=== PATIENT | male | born 1985 | race Caucasian/White ===

== ENCOUNTER 2020-03-22 19:14 | Emergency (ER) | payer SELFPAY ==
--- NOTE | ~2020-03-22 | XR_ITS ---
EXAMINATION: XR chest 2V EXAM DATE: 03/22/2020 19:39 INDICATION: Heart palpitations, chest discomfort. Symptoms developed after drinking energy drink. TECHNIQUE: Frontal and lateral projections of the chest obtained and reviewed. Comparison is made to prior examination from 09/30/2016. FINDINGS: Again there is mild hyperinflation. The lungs are clear. There are no pleural effusions. The cardiomediastinal silhouette is within normal limits. There is no pneumothorax suspected. The b ones and soft tissues are unremarkable. IMPRESSION: Hyperinflation, unchanged. Reviewed, dictated and finalized at location A. IMPRESSION: Hyperinflation, unchanged.
[2020-03-22 19:18] VITALS: BP 123/83; PULSE 65; RESP 17; TEMP 36.7; O2SAT 99
--- NOTE | 2020-03-22 19:23 | ECG_ITS ---
Measurements Intervals [place] Rate: 59 P: 56 MO: 125 QRS: 75 QRSD: 98 T: 64 QT: 371 QTc: 368 Interpretive Statements SINUS BRADYCARDIA INCOMPLETE RIGHT BUNDLE BRANCH BLOCK BORDERLINE ECG Electronically Signed On 03-23-2020 7:16:31 CDT by Travis Kearns D.O.
[2020-03-22 19:32] LABS: Basophils Absolute Auto 0.1 K/mm3 (0.0-0.1); Basophils Percent Auto 0.9 % (0.2-1.2); Eosinophils Absolute Auto 0.3 K/mm3 (0-0.3); Hematocrit 39.2 % (42.0-52.0); Hemoglobin 13.1 g/dL (14.0-18.0); Immature Granulocyte Absolute 0.02 K/mm3 (0.00-0.031); Immature Granulocyte Percent A 0.3 % (0-0.5); Lymphocytes Absolute Auto 1.74 K/mm3 (0.9-3.2); Lymphocytes Percent Auto 27.1 % (18.3-44.2); Mean Corpuscular HGB Conc 33.4 g/dl (32-36); Mean Corpuscular Hemoglobin 30.2 pg (26-34); Mean Corpuscular Volume 90.3 fl (80-100); Mean Platelet Volume 9.8 fl (7.4-10.4); Monocytes Absolute Auto 0.5 K/mm3 (0.1-0.6); Neutrophils Absolute Auto 3.8 K/mm3 (1.3-6.7); Neutrophils Percent Auto 59.7 % (45.5-73.1); Platelet Count Result 218 k/mm3 (150-375); Red Blood Count 4.34 M/mm3 (4.6-6.20); Red Cell Distribution Width 12.3 % (11.5-14.5); White Blood Count 6.4 K/mm3 (4.5-10.0)
--- NOTE | 2020-03-22 19:32 | PC.NURSE ---
Patient states he took 324mg Aspirin before coming to ED. 162mg returned to Pyx[facility], the other 162mg disposed of in waste after previously being opened.
[2020-03-22 19:42] LABS: Prothrombin Time 12.7 Seconds (11.1-14.7)
[2020-03-22 19:49] LABS: Blood Urea Nitrogen 8 mg/dL (9-20); Carbon Dioxide 28 mmol/L (22-30); Chloride 102 mmol/L (98-107); Estimated CRCL calculation 88 ml/min; Estimated Glomerular Filt Rate > 60; Glucose 101 mg/dL (75-110); Potassium 3.8 mmol/L (3.4-5.0); Sodium 137 mmol/L (137-145)
[2020-03-22 20:01] LABS: Troponin I < 0.012 ng/mL (0.000-0.034)
[2020-03-22 20:15] VITALS: BP 128/84; PULSE 58; RESP 13; O2SAT 99
--- NOTE | 2020-03-22 20:19 | ED.ARRPALP ---
HPI - Arrhythmia/Palpitations General Chief Complaint: Arrhythmia/Palpitations Stated Complaint: Irregular heartbeat Time Seen by Provider: 03/22/20 20:08 Source: patient Mode of arrival: ambulatory Limitations: no limitations History of Present Illness HPI narrative: This patient is a 34 year old male who presents for evaluation of palpitations. He states he was lifting boxes at work and he felt his heart starting to race. He states that he starting having more palpitations so he came to the ER. He reported that he had some chest tightness but that has resolved. He denies cough, fever or chills. He states he feels better. He does admit to drinking 2 energy drinks today today prior to this episode. He reports he drinks them daily. His mother states patient has loss weight because he is working and not eating. MD complaint: palpitations and irregular heart beat Related Data Home Medications Medication Instructions Recorded Confirmed No Home Medications 03/22/20 Allergies Allergy/AdvReac Type Severity Reaction Status Date / Time Sulfa (Sulfonamide Allergy Unknown Verified 03/22/20 19:22 Antibiotics) Review of Systems Review of Systems: All systems reviewed & are unremarkable except as noted in HPI and below Constitutional: Constitutional: Denies chills and Reports fatigue Cardiovascular: Cardiovascular: Reports chest pain, Reports rapid heart rate and Denies radiating jaw, neck or arm pain Respiratory: Respiratory: Denies cough, Denies dyspnea and Denies wheezing Gastrointestinal: Gastrointestinal: Denies abdominal pain [facility] Family History Family History (Updated 06/17/14 @ 07:13 by DOCTOR UNKNOWN) Father Family history of pancreatic cancer Social History Social History (Updated 03/22/20 @ 20:20 by Jyotsna Gunn MD) Smoking packs per day: 1 Smoking cigarettes per day: 20.0 Smoking status: Current every day smoker Alcohol intake: current Substance use type: marijuana Exam Narrative: Exam Narrative: GENERAL: Well-appearing, thin and in no acute distress. HEAD: Normocephalic, atraumatic EYES: PERRLA and EOMI, conjunctiva clear without discharge EARS: TM's clear bilaterally without erythema or dullness NOSE: Nares clear, no rhinorrhea or epistaxis THROAT:Mucous membranes moist, Oropharynx normal without erythema, exudate, peritonsillar swelling or fluctuance NECK: Supple, without lymphadenopathy or mass RESPIRATORY: No respiratory distress, Airway patent, Respirations non-labored, Clear to auscultation without rales, rhonchi or wheeze HEART: Regular rate and rhythm. No murmur heard. Normal peripheral pulses. ABDOMEN: Soft, nontender, nondistended, normal active bowel sounds. No masses. No rebound or guarding, No organomegaly. EXTREMITIES: No edema, normal strength with full range of motion. SKIN: Warm, dry, normal color without rash NEURO: Alert and oriented x3. CN 2-12 grossly intact. No focal deficits. PSYCH: Normal mood and affect. Course Reevaluation(s) Reevaluation #1: PAtient has no symptoms. Patient has been in sinus bradycardia which he has history of. There is no tachycardia. He will refrain from caffeine or energy drinks. Date: 03/22/20 Time: 22:59 Vital Signs Vital signs: Vital Signs Temperature 98.1 F 03/22/20 19:18 Pulse Rate 65 03/22/20 19:18 Respiratory Rate 17 03/22/20 19:18 Blood Pressure 123/83 03/22/20 19:18 Pulse Oximetry 99 03/22/20 19:18 Temperature 97.2 F L 03/22/20 23:24 Pulse Rate 55 L 03/22/20 23:24 Respiratory Rate 14 03/22/20 23:24 Blood Pressure 117/60 03/22/20 23:24 Pulse Oximetry 99 03/22/20 23:24 MDM - Arrhythmia/Palpitations Lab Data Attestation: I reviewed the patient's lab results. Result diagrams: 03/22/20 19:25 03/22/20 19:25 Labs: Lab Results 03/22/20 03/22/20 03/22/20 Range/Units 19:25 19:25 19:25 WBC 6.4 (4.5-10.0) K/mm3
[2020-03-22 20:31] LABS: Magnesium 2.2 mg/dL (1.6-2.3)
[2020-03-22 21:45] VITALS: BP 111/73; PULSE 51; RESP 10; O2SAT 100
[2020-03-22 22:53] LABS: Troponin I < 0.012 ng/mL (0.000-0.034)
[2020-03-22 23:24] VITALS: BP 117/60; PULSE 55; RESP 14; TEMP 36.2; O2SAT 99
== END 2020-03-22 23:26 | disposition home or self-care (01) ==
PROVIDERS: Emergency Provider General Practice
DX: R00.2 Palpitations (principal); E83.52 Hypercalcemia; F17.210 Nicotine dependence, cigarettes, uncomplicated; R00.1 Bradycardia, unspecified; I45.10 Unspecified right bundle-branch block
CPT/HCPCS: 36415; 71046; 80048; 83735; 84484; 85025; 85610; 85730; 93005; 99284

== ENCOUNTER 2022-03-15 16:50 | Emergency (ER) | payer OTHER, SELFPAY ==
--- NOTE | ~2022-03-15 | CT_ITS ---
EXAMINATION: CT abdomen pelvis w con DATE: 03/15/2022 18:45 INDICATION: Left upper abdomen pain. TECHNIQUE: Computed tomography (CT) of the abdomen and pelvis was performed with 75 cc Omnipaque 350 intravenous contrast. The dose-length product was 181.41 mGy-cm. Automated exposure control and itera tive reconstruction technique were employed. COMPARISON: CT dated 10/22/2014. FINDINGS: Lung bases are unremarkable. Heart size is normal. No significant pleural or pericardial ef fusion. Small subcentimeter hypodensities of the liver, most likely benign. The spleen, pancreas, adr enal glands and kidneys are unremarkable. There is moderate fluid in the stomach. No evidence for obs truction. No significant vascular abnormality. No lymphadenopathy. There is lower thoracic spondylosi s. No acute osseous abnormality. IMPRESSION: 1. No acute abdominal abnormality. Reviewed, dictated and finalized at location A.
[2022-03-15 16:56] VITALS: BP 133/79; PULSE 95; RESP 18; TEMP 36.8; O2SAT 99
[2022-03-15 17:03] LABS: Appearance Urine Clear (Clear); Bilirubin Urine Negative (Negative); Blood Urine Negative (Negative); Glucose Urine UA Negative (Negative); Ketones Urine Negative (Negative); Leukocyte Esterase Ur Negative LEU/UL (Negative); Nitrate Urine Negative (Negative); Protein Urine Negative (Negative); Urobilinogen Urine 0.2 mg/dL (<2.0); pH Urine 6.5 (5.0-9.0)
[2022-03-15 17:04] LABS: Add Urine Microscopic? NO; Color Urine Light Yellow (Yellow)
[2022-03-15 17:12] VITALS: BP 120/77; PULSE 56; RESP 18; O2SAT 100
[2022-03-15 17:24] LABS: Basophils Absolute Auto 0.1 K/mm3 (0.0-0.1); Basophils Percent Auto 1.1 % (0.2-1.2); Eosinophils Absolute Auto 0.2 K/mm3 (0-0.3); Eosinophils Percent Auto 3.3 % (0-4.4); Hematocrit 42.6 % (42.0-52.0); Hemoglobin 13.8 g/dL (14.0-18.0); Immature Granulocyte Absolute 0.02 K/mm3 (0.00-0.031); Immature Granulocyte Percent A 0.4 % (0-0.5); Lymphocytes Percent Auto 25.8 % (18.3-44.2); Mean Corpuscular HGB Conc 32.4 g/dl (32-36); Mean Corpuscular Hemoglobin 29.4 pg (26-34); Mean Corpuscular Volume 90.8 fl (80-100); Mean Platelet Volume 9.6 fl (7.4-10.4); Monocytes Absolute Auto 0.4 K/mm3 (0.1-0.6); Monocytes Percent Auto 7.6 % (2.6-8.5); Neutrophils Absolute Auto 3.4 K/mm3 (1.3-6.7); Neutrophils Percent Auto 61.8 % (45.5-73.1); Platelet Count Result 224 k/mm3 (150-375); Red Blood Count 4.69 M/mm3 (4.6-6.20); Red Cell Distribution Width 12.1 % (11.5-14.5); White Blood Count 5.4 K/mm3 (4.5-10.0)
[2022-03-15 17:35] LABS: Alanine Aminotransferase 22 U/L (6-50); Albumin Level 4.5 g/dL (3.5-5.1); Alkaline Phosphatase 50 U/L (38-126); Anion Gap 5 mmol/L (8-16); Aspartate Amino Transferase 28 U/L (17-59); Bilirubin,Total 0.7 mg/dL (0.2-1.3); Blood Urea Nitrogen 8 mg/dL (9-20); Calcium 9.4 mg/dL (8.4-10.2); Carbon Dioxide 33 mmol/L (22-30); Chloride 102 mmol/L (98-107); Estimated CRCL calculation 98 ml/min; Estimated Glomerular Filt Rate > 60; Glucose 82 mg/dL (65-110); Lipase 43 U/L (23-300); Sodium 140 mmol/L (137-145)
--- NOTE | 2022-03-15 17:57 | ED.ABDPAIN ---
HPI - Abdominal Pain General Chief Complaint: Abdominal Pain Stated Complaint: abd pain after lifting Time Seen by Provider: 03/15/22 17:09 Source: patient Mode of arrival: ambulatory Limitations: no limitations History of Present Illness HPI narrative: This is a 36 year old male that presents to the ER for epigastric pain noted over the last 3 weeks. Worse with lying flat. Reports a possible lifting injury prior to it starting. Denies fever, vomiting, dysuria, hematuria, or diarrhea. Related Data Home Medications Medication Instructions Recorded Confirmed No Home Medications 03/22/20 Allergies Allergy/AdvReac Type Severity Reaction Status Date / Time Sulfa (Sulfonamide Allergy Unknown Verified 03/15/22 17:10 Antibiotics) Review of Systems Review of Systems: CONSTITUTIONAL: Denies fever CARDIOVASCULAR: Denies chest pain RESPIRATORY: Denies dyspnea. GASTROINTESTINAL: Reports abdominal pain. Denies nausea, vomiting, or diarrhea. GENITOURINARY: Denies dysuria or hematuria. [facility] Past Medical History Medical History (Updated 03/15/22 @ 20:14 by Elisabet Ruelas PA-C) No active medical problems Family History Family History (Updated 06/17/14 @ 07:13 by DOCTOR UNKNOWN) Father Family history of pancreatic cancer Social History Social History (Updated 03/22/20 @ 20:20 by Jyotsna Gunn MD) Smoking packs per day: 1 Smoking cigarettes per day: 20.0 Smoking status: Current every day smoker Alcohol intake: current Substance use type: marijuana Exam Narrative: GENERAL: Well-appearing, well-nourished, and in no acute distress. HEAD: Normocephalic, atraumatic. EYES: EOMI. CHEST: Clear to auscultation. No respiratory distress. No wheezes rales or rhonchi HEART: Regular rate and rhythm. No murmur heard. Normal peripheral pulses. ABDOMEN: Soft, nondistended, normal active bowel sounds. Tender to palpation in the epigastrium, without guarding. No CVA tenderness EXTREMITIES: Normal range of motion. No edema. SKIN: Warm, dry, no rash. NEURO: No focal deficits. Alert and oriented x3. PSYCH: Normal mood and affect Course Vital Signs Vital signs: Vital Signs Temperature 98.2 F 03/15/22 16:56 Pulse Rate 95 03/15/22 16:56 Respiratory Rate 18 03/15/22 16:56 Blood Pressure 133/79 03/15/22 16:56 Pulse Oximetry 99 03/15/22 16:56 Oxygen Delivery Room Air 03/15/22 16:56 Temperature 98.2 F 03/15/22 16:56 Pulse Rate 57 L 03/15/22 18:30 Respiratory Rate 16 03/15/22 18:30 Blood Pressure 119/86 03/15/22 18:30 Pulse Oximetry 98 03/15/22 18:30 Oxygen Delivery Room Air 03/15/22 16:56 MDM - Abdominal Pain MDM Narrative Medical decision making narrative: Patient presents to the emergency department for epigastric pain present over the last couple of weeks. He is afebrile and nontoxic-appearing. His vitals are stable. CBC and metabolic panel without concerning findings. UA without evidence of infection. CT scan of the abdomen and pelvis is without acute findings. Patient and family updated on case findings. He was instructed to follow-up with primary care doctor. He was given warnings to return to the ER Lab Data Attestation: I reviewed the patient's lab results. Result diagrams: 03/15/22 17:19 03/15/22 17:19 Labs: Lab Results 03/15/22 03/15/22 03/15/22 Range/Units 16:56 17:19 17:19 WBC 5.4 (4.5-10.0) K/mm3 RBC 4.69 (4.6-6.20) M/mm3 Hgb 13.8 L (14.0-18.0) g/dL Hct 42.6 (42.0-52.0) % MCV 90.8 (80-100) fl MCH 29.4 (26-34) pg MCHC 32.4 (32-36) g/dl RDW 12.1 (11.5-14.5) % Plt Count 224 (150-375) k/mm3 MPV 9.6 (7.4-10.4) fl Immature Gran % (Auto) 0.4 (0-0.5) % Neut % (Auto) 61.8 (45.5-73.1) % Lymph % (Auto) 25.8 (18.3-44.2) % Hickman % (Auto) 7.6 (2.6-8.5) % Eos % (Auto) 3.3 (0-4.4) % Baso % (Auto) 1.1 (0.2-1.2) % Lymph # (Auto) 1.4
[2022-03-15] MEDS: PANTOPRAZOLE SODIUM IV 40 MG VIAL IV PUSH (18:21)
[2022-03-15 18:30] VITALS: BP 119/86; PULSE 57; RESP 16; O2SAT 98
[2022-03-15 20:21] VITALS: BP 102/69; PULSE 50; RESP 18; O2SAT 99
--- NOTE | 2022-03-22 10:45 | PC.NURSE ---
THIS PT CALLED THE ED THIS AM STATING THAT HE WAS SEEN HERE ON 03/15/22. PT REQUESTS RELEASE FORM TO SHOW THAT HE CAN RETURN TO WORK W/O RESTRICTIONS. ON DUTY EDP DR PELLETIER APPROVED TO WRITE THE RELEASE.
== END 2022-03-15 20:20 | disposition home or self-care (01) ==
PROVIDERS: Physician Assistant; Emergency Provider Emergency Medicine
DX: R10.13 Epigastric pain (principal); F17.210 Nicotine dependence, cigarettes, uncomplicated
CPT/HCPCS: 36415; 74177; 80053; 81003; 83690; 85025; 96374; 99284; C9113; Q9967

== ENCOUNTER 2025-02-15 14:50 | Outpatient (CLI) | payer OTHER, SELFPAY ==
--- OUTSIDE RECORDS SUMMARY | 2025-02-15 17:00 | XMS_ITS | Clinical Summary ---
Author Organization [facility] Address [address] [place] [address] Care Team Providers Care Coding Validator Name Role Phone Evens Hanks MD Primary Care Provider [phone] Source Comments [facility],non-owned Affiliates and Associated Physician Practices is amultiple site organization consisting of ambulatory clinics and hospital sitesin [place], [place], [place] and [place]. This disclosure is being madepursuant to the Care Everywhere program and may not contain all information available regarding this patient. Last updated 18.[facility] Allergies No known active allergies Medications * Be aware that medications may not be up to date on this document. Alwaysverify current medications with the patient. 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 Gender Identity Not on file Sexual Orientation Not on file Last Filed Vital Signs Vital Sign Reading Time Taken Comments Blood Pressure 118/78 02/27/2018 6:58 PM CDT Pulse 97 02/27/2018 6:58 PM CDT Temperature 37.6 C (99.6 F) 02/27/2018 6:58 PM CDT Respiratory Rate 16 11/05/2017 11:49 AM APPLICATIONS ENGINEER MANUFACTURING Oxygen Saturation 97% 02/27/2018 6:58 PM CDT Inhaled Oxygen Concentration - - Weight 68 kg (150 lb) 02/27/2018 6:58 PM CDT Height 177.8 cm (5' 10 ) 02/27/2018 6:58 PM CDT Body Mass Index 21.52 02/27/2018 6:58 PM CDT Plan of Treatment Health Maintenance Due Date Last Done Comments HIV SCREENING 2002 HEPATITIS C SCREENING 03/27/2005 DTAP/TDAP/TD VACCINES (1 - Tdap) 2006 HEPATITIS B VACCINE (1 of 3 - 19+ 3-dose series) 2006 COVID-19 VACCINE (1 - 2023-2 5 season) 2024 DEPRESSION SCREENING 10/21/2024 INFLUENZA VACCINE (Season Ended) 2025 ZOSTER VACCINE (1 of 2) 2037 HIB VACCINE Aged Out No longer eligi ble based on patient's age to complete this topic HPV VACCINE Aged Out No longer eligi ble based on patient's age to complete this topic MENINGOCOCCAL (Group B) VACC INE SHARED DECISION-MAKING Aged Out No longer eligibl e based on patient's age to complete this topic MENINGOCOCCAL GROUPS A/C/Y/W VACCINE Aged Out No longer eligible b ased on patient's age to complete this topic PNEUMOCOCCAL VACCINE Aged Out No long er eligible based on patient's age to complete this topic Insurance Care Teams Coding Validator Relationship Specialty Start Date End Date Evens Hanks MD [address] [place] [address] [address] [place] [address] PCP - General Family Medicine 11/05/17
--- OUTSIDE RECORDS SUMMARY | 2025-02-15 17:00 | XMS_ITS | Clinical Summary ---
Author Organization [facility] Address [facility] [address] [place] [address] Care Team Providers Care High School Foreign Language Tutor Name Role Phone None, Provider MD Primary Care Provider Unavaila ble Allergies No known active allergies Medications famotidine (PEPCID) 20 MG tablet Take 1 tablet (20 mg total) by mouth 2 (two) times daily as needed. 20 tablet 08/03/2024 Active Social History Tobacco Use Types Packs/Day Years Used Date Smoking Tobacco: Never Assessed Sex and Gender Information Value Date Recorded Sex Assigned at Not on file Legal Sex Male 10:34 AM CDT Gender Identity Not on file Sexual Orientation Not on file Last Filed Vital Signs Vital Sign Reading Time Taken Comments Blood Pressure 136/102 08/03/2024 10:36 AM CDT Pulse 66 08/03/2024 10:36 AM CDT Temperature 36.7 C (98.1 F) 08/03/2024 10:36 AM CDT Respiratory Rate 18 08/03/2024 10:36 AM CDT Oxygen Saturation 100% 08/03/2024 10:36 AM CDT Inhaled Oxygen Concentration - - Weight 61.2 kg (135 lb) 08/03/2024 10:36 AM CDT Height 177.8 cm (5' 10 ) 08/03/2024 10:36 AM CDT Body Mass Index 19.37 08/03/2024 10:36 AM CDT Plan of Treatment Health Maintenance Due Date Last Done Comments Annual Physical 1990 Hepatitis C 2005 DTaP, Tdap and Td Vaccines ( 1 - Tdap) 2006 Hepatitis B Vaccines (1 of 3 - 19+ 3-dose series) 2006 COVID-19 Vaccine (2023-2 5 season) 2024 HPV Vaccines Aged Out No longer eligi ble based on patient's age to complete this topic Meningococcal B Vaccine Aged Out No l onger eligible based on patient's age to complete this topic Meningococcal Vaccine Aged Out No nick nilton eligible based on patient's age to complete this topic Pneumococcal Vaccine: Pediat rics (0 to 5 Years) and At-Risk Patients (6 to 49 Years) Aged Out No longer eligible b ased on patient's age to complete this topic RSV Immunizations Under 20 Months Aged Out No longer eligible based on patient's age to complete this topic Insurance [facility] Care Teams High School Foreign Language Tutor Relationship Specialty Start Date End Date None, Provider, PCP - General UNKNOWN PHYSICIAN SPECIALTY 08/03/24
[2025-02-15 19:02] LABS: Alanine Aminotransferase 14 U/L (6-50); Albumin Level 4.2 g/dL (3.5-5.1); Alkaline Phosphatase 57 U/L (38-126); Anion Gap 7 mmol/L (4-12); Aspartate Amino Transferase 28 U/L (17-59); Blood Urea Nitrogen 8 mg/dL (9-20); Calcium 9.2 mg/dL (8.4-10.2); Carbon Dioxide 30 mmol/L (22-30); Chloride 102 mmol/L (98-107); Cholesterol 168 mg/dL (0-200); Estimated Glomerular Filt Rate > 60; Glucose 87 mg/dL (65-110); Potassium 4.4 mmol/L (3.4-5.0); Sodium 139 mmol/L (137-145); Triglycerides 50 mg/dL (<150)
[2025-02-15 19:12] LABS: LDL Cholesterol Direct 69 mg/dL
[2025-02-15 19:20] LABS: Basophils Absolute Auto 0.1 K/mm3 (0.0-0.1); Eosinophils Absolute Auto 0.2 K/mm3 (0-0.3); Eosinophils Percent Auto 2.6 % (0-4.4); Hematocrit 42.2 % (42.0-52.0); Hemoglobin 13.3 g/dL (14.0-18.0); Immature Granulocyte Absolute 0.01 K/mm3 (0.00-0.031); Immature Granulocyte Percent A 0.2 % (0-0.5); Lymphocytes Absolute Auto 1.09 K/mm3 (0.9-3.2); Lymphocytes Percent Auto 17.9 % (18.3-44.2); Mean Corpuscular HGB Conc 31.5 g/dl (32-36); Mean Corpuscular Hemoglobin 28.5 pg (26-34); Mean Corpuscular Volume 90.4 fl (80-100); Mean Platelet Volume 9.7 fl (7.4-10.4); Monocytes Absolute Auto 0.5 K/mm3 (0.1-0.6); Monocytes Percent Auto 8.6 % (2.6-8.5); Neutrophils Absolute Auto 4.2 K/mm3 (1.3-6.7); Neutrophils Percent Auto 69.7 % (45.5-73.1); Platelet Count Result 247 k/mm3 (150-375); Red Blood Count 4.67 M/mm3 (4.6-6.20); Red Cell Distribution Width 11.9 % (11.5-14.5); White Blood Count 6.1 K/mm3 (4.5-10.0)
[2025-02-15 19:31] LABS: Thyroid Stimulating Hormone 0.251 uIU/mL (0.465-4.680)
[2025-02-15 20:23] LABS: HDL Direct 65 mg/dL
== END 2025-02-15 14:51 | disposition home or self-care (01) ==
LOC: ANHGOSHLAB 14:51
PROVIDERS: PCP Family Medicine; Visit Provider Family Medicine
DX: R63.4 Abnormal weight loss (principal); N52.9 Male erectile dysfunction, unspecified; Z13.220 Encounter for screening for lipoid disorders
CPT/HCPCS: 36415; 80053; 80061; 84402; 84403; 84443; 85025

== ENCOUNTER 2025-03-10 10:41 | Outpatient (CLI) | payer OTHER, SELFPAY ==
--- OUTSIDE RECORDS SUMMARY | 2025-03-10 11:17 | XMS_ITS | Clinical Summary ---
Author Organization [email or web address] Address [address] [place] [address] Care Team Providers Care Roll Panner Name Role Phone Evens Hanks MD Primary Care Provider [phone] Source Comments [email or web address],non-owned Affiliates and Associated Physician Practices is amultiple site organization consisting of ambulatory clinics and hospital sitesin [place], [place], [place] and [place]. This disclosure is being madepursuant to the Care Everywhere program and may not contain all information available regarding this patient. 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 [place] [address] PCP - General Family Medicine 11/05/17
[2025-03-11 10:38] LABS: LH 2.5 mIU/mL (1.5-9.3)
[2025-03-15 14:10] LABS: Testosterone Free 69.6 pg/mL (35.0-155.0); Testosterone Total 598 ng/dL (250-1100)
== END 2025-03-10 10:42 | disposition home or self-care (01) ==
LOC: ANHGOSHLAB 10:42
PROVIDERS: PCP Family Medicine; Visit Provider Family Medicine
DX: E29.1 Testicular hypofunction (principal)
CPT/HCPCS: 36415; 83001; 83002; 84402; 84403

== ENCOUNTER 2025-04-19 13:25 | Outpatient (CLI) | payer OTHER, SELFPAY ==
--- NOTE | ~2025-04-19 | MR_ITS ---
EXAMINATION: MR brain/brain stem wo con DATE: 04/19/2025 14:07 INDICATION: Headache TECHNIQUE: Magnetic resonance imaging (MRI) of the brain and brainstem was performed without intraven ous contrast. Sequences included sagittal and axial T1-weighted SE, axial diffusion-weighted FS SE, a xial 3D SWAN, axial T2-weighted FLAIR, and axial T2-weighted FSE. Apparent diffusion coefficient (ADC ) maps were created. COMPARISON: None. FINDINGS: There are no areas of restricted diffusion to suggest acute infarction. No intracranial hemorrhage or abnormal intracranial mass lesion. There are multiple scattered foci of ossific increased white jeni er T2 hyperintensity. This includes 15 in the left cerebral hemisphere, 12 in the right cerebral franny sphere and one in the right cerebellar hemisphere. There are no intraparenchymal signal abnormalities seen on the other pulse sequences. The ventricles are symmetric and normal in size. There are no abn ormal extra-axial fluid collections. Flow voids are seen in the cerebral arteries on the T2-weighted sequences consistent with their expected patency. Visualized orbits and soft tissues are unremarkable . IMPRESSION: 1. Multiple small nonspecific foci of increased white matter T2 hyperintensity which is disproportion ate for age. Mild nonspecific cerebral white matter disease. The differential diagnosis includes yaya ature chronic small vessel ischemic disease (especially if the patient has cardiovascular risk factor s), demyelinating disease such as multiple sclerosis, drug abuse, vasculitis, or reactive astrocytosi s (gliosis) secondary to nonspecific etiology. Reviewed, dictated and finalized at location B. IMPRESSION: 1. Multiple small nonspecific foci of increased white matter T2 hyperintensity which is disproportionate for age. Mild nonspecific cerebral white matter disea se. The differential diagnosis includes premature chronic small vessel ischemic disease (especially if the patient has cardiovascular risk factors), demyelina ting disease such as multiple sclerosis, drug abuse, vasculitis, or reactive as trocytosis (gliosis) secondary to nonspecific etiology.
== END 2025-04-19 13:26 | disposition home or self-care (01) ==
LOC: GOSHIMG 13:26
PROVIDERS: PCP Family Medicine; Visit Provider Family Medicine
DX: R90.82 White matter disease, unspecified (principal); E34.9 Endocrine disorder, unspecified
CPT/HCPCS: 70551

== ENCOUNTER 2025-04-26 14:51 | Outpatient (CLI) | payer OTHER, SELFPAY ==
--- OUTSIDE RECORDS SUMMARY | 2025-04-26 14:54 | XMS_ITS | Clinical Summary ---
Author Organization [facility] Address [facility] [place] [address] Care Team Providers Care Plugger Worker Name Role Phone None, Provider MD Primary [...] 10:36 AM CDT Height 177.8 cm (5' 10) 08/03/2024 10:36 AM CDT Body Mass Index [...] patient's age to complete this topic Insurance [facility] Care Teams Plugger Worker Relationship Specialty Start Date End Date None, Provider, PCP - General UNKNOWN PHYSICIAN SPECIALTY 08/03/24
--- OUTSIDE RECORDS SUMMARY | 2025-04-26 14:54 | XMS_ITS | Clinical Summary ---
Author Organization [facility] Address [address] [place] [address] Care Team Providers Care Architectural Inspector Name Role Phone Evens Hanks MD Primary Care Provider [phone] Source Comments [facility],non-owned Affiliates and Associated Physician Practices is amultiple site organization consisting of ambulatory clinics and hospital sitesin [place], [place], [place] and [place]. This disclosure is being madepursuant to the Care Everywhere program and may not contain all information available regarding this patient. 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 Gender Identity Not on file Sexual Orientation Not on file Last Filed Vital Signs Vital Sign Reading Time Taken Comments Blood Pressure 118/78 02/27/2018 6:58 PM CDT Pulse 97 02/27/2018 6:58 PM CDT Temperature 37.6 C (99.6 F) 02/27/2018 6:58 PM CDT Respiratory Rate 16 11/05/2017 11:49 AM WEBSPHERE COMMERCE CONSULTANT Oxygen Saturation 97% 02/27/2018 6:58 PM CDT Inhaled Oxygen Concentration - - Weight 68 kg (150 lb) 02/27/2018 6:58 PM CDT Height 177.8 cm (5' 10) 02/27/2018 6:58 PM CDT Body Mass Index [...] to complete this topic Insurance Care Teams Architectural Inspector Relationship Specialty Start Date End Date Evens Hanks MD [address] [place] [address] [address] [place] [address] PCP - General Family Medicine 11/05/17
[2025-04-26 18:40] LABS: Hematocrit 41.4 % (42.0-52.0); Hemoglobin 13.4 g/dL (14.0-18.0); Immature Granulocyte Percent A 0.5 % (0-0.5); Lymphocytes Absolute Auto 0.86 K/mm3 (0.9-3.2); Mean Corpuscular HGB Conc 32.4 g/dl (32-36); Mean Corpuscular Hemoglobin 29.0 pg (26-34); Mean Corpuscular Volume 89.6 fl (80-100); Nucleated Red Blood Cells Absolute Auto 0.000 K/mm3 (0.0-0.012); Nucleated Red Blood Cells Perc 0.0 % (0.0-0.2); Platelet Count Result 237 k/mm3 (150-375); Red Blood Count 4.62 M/mm3 (4.6-6.20); White Blood Count 6.5 K/mm3 (4.5-10.0)
[2025-04-26 19:07] LABS: Iron 73 ug/dL (49-181)
[2025-04-26 19:16] LABS: Percent Iron Saturation 21 % (20-50)
[2025-04-26 19:24] LABS: Free T4 Free Thyroxine 0.88 ng/dL (0.78-2.19)
[2025-04-26 19:40] LABS: Thyroid Stimulating Hormone 0.512 uIU/mL (0.465-4.680)
[2025-04-26 19:43] LABS: Ferritin 36.70 ng/mL (17.9-464)
[2025-04-26 19:59] LABS: Vitamin B12 329.0 pg/mL (239-931)
[2025-04-28 08:33] LABS: Thyroglobulin Ab. <1 IU/mL (< or = 1)
[2025-04-29 08:55] LABS: Thyroid Peroxidase Antibodies. 1 IU/mL (<9)
== END 2025-04-26 14:52 | disposition home or self-care (01) ==
PROVIDERS: PCP Family Medicine; Visit Provider Family Medicine
DX: R63.4 Abnormal weight loss (principal); R79.89 Other specified abnormal findings of blood chemistry; E07.9 Disorder of thyroid, unspecified
CPT/HCPCS: 36415; 82607; 82728; 83519; 83540; 83550; 84439; 84443; 84445; 85025; 86376; 86800; 86850; 87535